=== PATIENT | male | born 1970 | race Hispanic/Latino ===

== ENCOUNTER 2018-12-14 12:11 | Emergency (ER) | payer SELFPAY ==
[2018-12-14 13:37] LABS: Absolute Lymphocytes (CBC) 1.6 K/uL (0.7-4.9); Absolute Monocytes 1.4 K/uL (0.1-1.3); Absolute Neutrophil 10.9 K/uL (1.8-8.0); Basophils % 0.3 % (0-1.3); Eosinophils % 1.1 % (0-4.4); Hematocrit 45.2 % (39.6-49.0); Lymphocytes % 11.6 % (15.3-44.8); MPV 9.6 fL (7.6-11.3); Monocytes % 9.6 % (3.3-12.3); RBC Red Blood Cell Count 5.38 M/uL (4.33-5.43)
--- NOTE | 2018-12-14 13:40 | RAD REPORT ---
EXAM DESCRIPTION: RAD - Chest Single View - 12/14/2018 1:19 pm CLINICAL HISTORY: Cough and congestion, weakness COMPARISON: None. TECHNIQUE: AP portable chest image was obtained 1316 hours . FINDINGS: Lungs are clear. Heart and vasculature are normal. No measurable pleural effusion and no p neumothorax. No acute bony abnormality seen. No acute aortic findings suspected. IMPRESSION: No acute cardiopulmonary process.
[2018-12-14 13:41] LABS: Protime INR 1.07
[2018-12-14 13:53] LABS: CKMB Creatine Kinase MB 1.1 ng/mL (0.3-3.6); Potassium 3.8 mmol/L (3.5-5.1)
[2018-12-14] MEDS ORDERED: CEFTRIAXONE/SWI 1gm 1 GM/10 ML SYR ONE (14:10)
--- NOTE | 2018-12-14 14:24 | RAD REPORT ---
EXAM DESCRIPTION: CT - Soft Tissue Neck W/Contr - 12/14/2018 2:05 pm CLINICAL HISTORY: Trismus, patient details left-sided jaw pain, left-sided toothache TECHNIQUE: During dynamic enhancement using 100 milliliters nonionic IV contrast, axial 5 millimeter thick images of the neck were obtained. All CT scans are performed using dose optimization technique as appropriate and may include automated exposure control or mA/KV adjustment according to patient size. FINDINGS: Intracranial portion of the examination is unremarkable. No globe or orbital content abnor mality. Mastoid air cells are not pneumatized in this patient. The paranasal sinuses are clear. No pharyngeal mucosal mass or asymmetry. Tonsillar and tongue base tissues shows no suspicious findin g. Parapharyngeal fat is normal in appearance. Soft palate, epiglottis and laryngeal structures also unremarkable. Parotid, submandibular and thyroid gland tissue show no suspicious findings. No acute bone finding identifiable. No erosive or destructive changes in the mandible or maxilla. No periodontal mass, abscess or measurable inflammatory stranding. No soft tissue mass or abnormal ly mphadenopathy. IMPRESSION: As detailed above, CT soft tissue neck examination shows no significant or suspicious fi nding.
[2018-12-14 14:26] LABS: Urine Bacteria <20 /HPF (NONE SEEN); Urine Culture Reflex Order NOT NEEDED; Urine RBC <5 /HPF (NONE SEEN)
[2018-12-14 14:32] LABS: Urine Blood NEGATIVE (NEG); Urine Glucose 2+ (NEG); Urine Protein NEGATIVE (NEG); Urine Specific Gravity <1.005 (1.005-1.030); Urine pH 5.5 (5.0-7.0)
[2018-12-14] MEDS ORDERED: TRAMADOL HCL 50 MG TAB ONE (14:59)
[2018-12-14] MEDS ORDERED: LISINOPRIL 10 MG TAB ONE (15:01)
[2018-12-14] MEDS ORDERED: cloNIDine HCl 0.1 MG TAB ONE (15:01)
[2018-12-14 15:02] LABS: ALT/SGPT 21 U/L (12-78); AST/SGOT 11 U/L (15-37); Albumin 3.1 g/dL (3.4-5.0); Alkaline Phosphatase 87 U/L (45-117); Bilirubin Direct 0.2 mg/dL (0-0.2); Bilirubin Total 0.6 mg/dL (0.2-1.0); Lipase 132 U/L (73-393); Protein, Total 8.1 g/dL (6.4-8.2); Troponin (Emerg Dept Use Only) < 0.02 ng/mL (0.0-0.045)
--- NOTE | 2018-12-14 16:23 | ER ---
Nurse's Notes [facility] Name: John Paz Age: 48 yrs Sex: Male : 1970 Arrival Date: 12/14/2018 Time: 12:15 Bed 2 Private MD: Diagnosis: Hypertension: poorly controlled; left lower mandibular pain (no abscess) Presentation: 12/14 12:18 Presenting complaint: Patient states: "I had an MRI of my back about 2 weeks ago and aa5 the doctor in [place] said my back is messed up but I am just so weak and my left jaw hurts". Pt reports generalized weakness, pt also reports toothache to left side, and body aches. Pt reports symptoms began 1-2 weeks ago. Pt states "I also feel like a ball under my testicles and it hurts a little bit". Transition of care: patient was not received from another setting of care. Onset of symptoms was December 2018. Risk Assessment: Do you want to hurt yourself or someone else? Patient reports no desire to harm self or others. Initial Sepsis Screen: Does the patient meet any 2 criteria? No. Patient's initial sepsis screen is negative. Does the patient have a suspected source of infection? No. Patient's initial sepsis screen is negative. Care prior to arrival: None. 12:18 Method Of Arrival: Ambulatory aa5 12:18 Acuity: TIEN 3 aa5 Historical: - Allergies: 12:21 No Known Allergies; aa5 - PMHx: 12:21 Hypertension; Back problems/pain; aa5 - PSHx: 12:21 None; aa5 - Immunization history:: Adult Immunizations unknown. - Social history:: Smoking status: Patient uses tobacco products, 2 cigarettes a day . - Ebola Screening: : No symptoms or risks identified at this time. Screenin:52 Abuse screen: Denies threats or abuse. Denies injuries from another. Nutritional ph screening: No deficits noted. Tuberculosis screening: No symptoms or risk factors identified. Fall Risk None identified. Assessment: 12:45 General: Appears in no apparent distress. uncomfortable, Behavior is calm, cooperative, ph appropriate for age. Pain: Complains of pain in left jaw and back. Neuro: Level of Consciousness is awake, alert, obeys commands, Oriented to person, place, time, situation. Neuro: Reports weakness in " all over" x 2 weeks. Cardiovascular: Capillary refill < 3 seconds in bilateral fingers Patient's skin is warm and dry. Respiratory: Airway is patent Respiratory effort is even, unlabored, Respiratory pattern is regular, symmetrical, Denies cough, shortness of breath. GI: No signs and/or symptoms were reported involving the gastrointestinal system. Patient currently denies abdominal pain, diarrhea, nausea, vomiting. : Reports " a bump " under scrotum that is tender upon palpation. Derm: Skin is intact, is healthy with good turgor, Skin is pink, warm \\T\\ dry. Musculoskeletal: Circulation, motion, and sensation intact. Range of motion: intact in all extremities. 12:53 Reassessment: Patient appears in no apparent distress at this time. Patient and/or ph family updated on plan of care and expected duration. Pain level reassessed. Patient is alert, oriented x 3, equal unlabored respirations, skin warm/dry/pink. Pt ambulated to restroom w/ steady gait, urine sample obtained. 14:00 Reassessment: Patient appears in no apparent distress at this time. Patient and/or ph family updated on plan of care and expected duration. Pain level reassessed. Patient is alert, oriented x 3, equal unlabored respirations, skin warm/dry/pink. Pt resting quietly, awaiting lab and radiology results, SO at bedside. 14:59 Reassessment: Patient appears in no apparent distress at this time. Patient and/or ph family updated on plan of care and expected duration. Pain level reassessed. Patient is alert, oriented x 3, equal unlabored respirations, skin warm/dry/pink. Pt medicated for per per ERP order, ambulated to restroom w/ steady gait. Vital Signs: 12:22 BP 168 / 98; Pulse 100; Resp 16 S; Temp 98.2(TE); Pulse Ox 96% ; Weight 117.93 kg (R); aa5 Height 5 ft. 5 in. (165.10 cm) (R); Pain 10/10; 13:30 BP 175 / 111; Pulse 92; Resp 21; Temp 98.1(O); Pulse Ox 96% on R/A; Pain 10/10; dh3 14:29 BP 178 / 126; Pulse 87; Resp 22; Temp 97.9(O); Pulse Ox 95% on R/A; Pain 10/10; dh3 16:00 BP 144 / 103; Pulse 85; Resp 18; Pulse Ox 96% on R/A; ph 12:22 Body Mass Index 43.27 (117.93 kg, 165.10 cm) aa5 ED Course: 12:15 Patient arrived in ED. aa5 12:18 Arm band placed on. aa5 12:20 Triage completed. aa5 12:27 Sukh Munoz MD is Attending Physician. kdr 12:40 Barbara Barragan, BELKYS is Primary Nurse. ph 13:00 First set of blood cultures drawn by me. Missed attempt(s): 18 gauge in right forearm. dh3 Bleeding controlled, band aid applied, catheter tip intact. 13:16 Initial lab(s) drawn, by nh, sent to lab. Second set of blood cultures drawn by me. 3 Inserted saline lock: 18 gauge in right antecubital area, using aseptic technique. Blood collected. 13:20 Chest Single View XRAY In Process Unspecified. EDMS 14:05 CT completed. Patient tolerated procedure well. Patient moved to CT via wheelchair. Patient moved back from CT. 14:07 CT Soft Tissue Neck W/contr In Process Unspecified. EDMS 14:53 Patient has correct armband on for positive identification. Placed in gown. Bed in low ph position. gambling monitor on. Pulse ox on. NIBP on. Door closed. Noise minimized. Warm blanket given. 15:00 No provider procedures requiring assistance completed. ph 16:25 IV discontinued, intact, bleeding controlled, No redness/swelling at site. Pressure ph dressing applied. Administered Medications: 14:00 Drug: Rocephin - (cefTRIAXone) 1 grams Route: IVPB; Infused Over: 30 mins; Site: right ph antecubital; 14:30 Follow up: Response: No adverse reaction; IV Status: Completed infusion ph 14:51 Drug: cloNIDine 0.2 mg Route: PO; ph 15:30 Follow up: Response: No adverse reaction; Blood pressure is lowered ph 14:51 Drug: Lisinopril 10 mg Route: PO; ph 15:30 Follow up: Response: No adverse reaction; Blood pressure is lowered ph 14:51 Drug: traMADol 100 mg Route: PO; ph 15:30 Follow up: Response: No adverse reaction; Pain is decreased ph Point of Care Testing: Blood Glucose: 13:31 Blood Glucose: 338 mg/dL; dh3 Ranges: Outcome: 16:22 Discharge ordered by . kdr 16:38 Patient left the ED. ph 16:38 Discharged to home ambulatory, with significant other. ph 16:38 Condition: good 16:38 Discharge instructions given to patient, Instructed on discharge instructions, follow up and referral plans. medication usage, Demonstrated understanding of instructions, follow-up care, medications, Prescriptions given X 2. Signatures: Dispatcher [employer] EDMS Sukh Munoz MD MD kdr Jones, Susan sj Calderon, Audri RN RN aa5 Barbara Barragan RN RN Erika Sherwood 3 Corrections: (The following items were deleted from the chart) 12:20 12:18 Presenting complaint: Patient states: "I had an MRI of my back about 2 weeks ago aa5 and the doctor in [place] said my back is messed up but I am just so weak and my left jaw hurts". Pt reports generalized weakness, pt also reports toothache to left side. Pt reports symptoms began 1-2 weeks ago aa5 12:22 12:18 Presenting complaint: Patient states: "I had an MRI of my back about 2 weeks ago aa5 and the doctor in [place] said my back is messed up but I am just so weak and my left jaw hurts". Pt reports generalized weakness, pt also reports toothache to left side, and body aches. Pt reports symptoms began 1-2 weeks ago aa5
--- NOTE | 2018-12-14 16:23 | EDPHYS ---
Physician Documentation [facility] Name: John Paz Age: 48 yrs Sex: Male : 1970 Arrival Date: 12/14/2018 Time: 12:15 Bed 2 Private MD: ED Physician Sukh Munoz HPI: 12/14 15:20 This 48 yrs old Male presents to ER via Ambulatory with complaints of multiple kdr c/o including left jaw aching, trismus, lower extremity tightness and it hurts under my scrotum. 15:20 The patient states that for the past two weeks I have been hurting all over and I have kdr difficulty opening my mouth. He thinks he may have a dental abscess on the left lower mandible.. Onset: The symptoms/episode began/occurred gradually. Severity of symptoms: At their worst the symptoms were moderate in the emergency department the symptoms are unchanged. The patient has not experienced similar symptoms in the past. The patient has been recently seen by a physician: the patient's primary care provider, States he had an MRI of his back and he has chronic back pain . 15:20 He has been in Lisinopril in the past but ran out and did not get a refill.. kdr Historical: - Allergies: 12:21 No Known Allergies; aa5 - PMHx: 12:21 Hypertension; Back problems/pain; aa5 - PSHx: 12:21 None; aa5 - Immunization history:: Adult Immunizations unknown. - Social history:: Smoking status: Patient uses tobacco products, 2 cigarettes a day . - Ebola Screening: : No symptoms or risks identified at this time. ROS: 15:20 Constitutional: Negative for fever, chills, and weight loss, Eyes: Negative for injury, kdr pain, redness, and discharge, ENT: Negative for injury, pain, and discharge - he does c/o mild trismus and neck pain Cardiovascular: Negative for chest pain, palpitations, and edema, Respiratory: Negative for shortness of breath, cough, wheezing, and pleuritic chest pain, Abdomen/GI: Negative for abdominal pain, nausea, vomiting, diarrhea, and constipation, MS/Extremity: Negative for injury and deformity, - he does c/o pain under his scrotum Skin: Negative for injury, rash, and discoloration, Neuro: Negative for headache, weakness, numbness, tingling, and seizure activity. Psych: Negative for depression, anxiety, suicide ideation, homicidal ideation, and hallucinations. 15:20 Neck: Positive for pain at rest, stiffness, Negative for injury or acute deformity. Exam: 17:16 Constitutional: This is a well developed, well nourished patient who is awake, alert, kdr and in no acute distress. Head/Face: Normocephalic, atraumatic. The patient c/oi pain to the left TMJ area. No erythema or abnormal swelling noted Eyes: Pupils equal round and reactive to light, extra-ocular motions intact. Lids and lashes normal. Conjunctiva and sclera are non-icteric and not injected. Cornea within normal limits. Periorbital areas with no swelling, redness, or edema. Neck: Trachea midline, no thyromegaly or masses palpated, and no cervical lymphadenopathy. Supple, full range of motion without nuchal rigidity, or vertebral point tenderness. No Meningismus. Chest/axilla: Normal chest wall appearance and motion. Nontender with no deformity. No lesions are appreciated. Cardiovascular: Regular rate and rhythm with a normal S1 and S2. No gallops, murmurs, or rubs. Normal PMI, no JVD. No pulse deficits. Respiratory: Lungs have equal breath sounds bilaterally, clear to auscultation and percussion. No rales, rhonchi or wheezes noted. No increased work of breathing, no retractions or nasal flaring. Abdomen/GI: Soft, non-tender, with normal bowel sounds. No distension or tympany. No guarding or rebound. No evidence of tenderness throughout. Back: No spinal tenderness. No costovertebral tenderness. Full range of motion. Skin: Warm, dry with normal turgor. Normal color with no rashes, no lesions, and no evidence of cellulitis. MS/ Extremity: Pulses equal, no cyanosis. Neurovascular intact. Full, normal range of motion. Neuro: Awake and alert, GCS 15, oriented to person, place, time, and situation. Cranial nerves II-XII grossly intact. Motor strength 5/5 in all extremities. Sensory grossly intact. Cerebellar exam normal. Normal gait. Psych: Awake, alert, with orientation to person, place and time. Behavior, mood, and affect are within normal limits. Vital Signs: 12:22 BP 168 / 98; Pulse 100; Resp 16 S; Temp 98.2(TE); Pulse Ox 96% ; Weight 117.93 kg (R); aa5 Height 5 ft. 5 in. (165.10 cm) (R); Pain 10/10; 13:30 BP 175 / 111; Pulse 92; Resp 21; Temp 98.1(O); Pulse Ox 96% on R/A; Pain 10/10; dh3 14:29 BP 178 / 126; Pulse 87; Resp 22; Temp 97.9(O); Pulse Ox 95% on R/A; Pain 10/10; dh3 16:00 BP 144 / 103; Pulse 85; Resp 18; Pulse Ox 96% on R/A; ph 12:22 Body Mass Index 43.27 (117.93 kg, 165.10 cm) aa5 MDM: 16:05 Data reviewed: vital signs, nurses notes. Counseling: I had a detailed discussion with kdr the patient and/or guardian regarding: the historical points, exam findings, and any diagnostic results supporting the discharge/admit diagnosis, lab results, radiology results, the need for outpatient follow up. ED course: The patient states he is feeling much better. He does not appear in any acute distress and his BP is much improved. His symptoms have been present for up to two weeks. He was sleeping on my last visit in the room though still maintained that his pain was an 8/10. He had no s/s of meningitis or other acute illness. . 16:22 Patient medically screened. [facility] 12/14 12:44 Order name: Basic Metabolic Panel [facility] 12/14 12:44 Order name: Blood Culture Adult (2) [facility] 12/14 12:44 Order name: CBC with Diff kdr 12/14 12:44 Order name: Ckmb [facility] 12/14 12:44 Order name: CPK [facility] 12/14 12:44 Order name: Lactate; Complete Time: 14:15 [facility] 12/14 12:44 Order name: LFT's [facility] 12/14 12:44 Order name: Lipase [facility] 12/14 12:44 Order name: Procalcitonin; Complete Time: 14:34 [facility] 12/14 12:44 Order name: Protime (+inr); Complete Time: 13:51 [facility] 12/14 12:44 Order name: Ptt, Activated; Complete Time: 13:51 [facility] 12/14 12:44 Order name: Troponin (emerg Dept Use Only) kdr 12/14 12:44 Order name: Urine Microscopic Only; Complete Time: 14:34 kdr 12/14 12:49 Order name: Basic Metabolic Panel; Complete Time: 14:15 EDMS 12/14 12:44 Order name: Chest Single View XRAY; Complete Time: 13:51 kdr 12/14 12:44 Order name: Accucheck; Complete Time: 13:35 kdr 12/14 12:44 Order name: Cardiac monitoring; Complete Time: 13:35 kdr 12/14 12:44 Order name: IV Saline Lock - Large Bore; Complete Time: 13:24 kdr 12/14 12:44 Order name: Labs collected and sent; Complete Time: 13:24 kdr 12/14 12:44 Order name: CT Soft Tissue Neck W/contr; Complete Time: 14:34 kdr 12/14 12:49 Order name: Blood Culture EDMS 12/14 12:49 Order name: CBC with Automated Diff; Complete Time: 13:51 EDMS 12/14 12:50 Order name: CKMB Creatine Kinase MB; Complete Time: 14:15 EDMS 12/14 12:50 Order name: Creatine Phosphokinase; Complete Time: 14:15 EDMS 14 13:37 Order name: Glucose, Ancillary Testing; Complete Time: 13:51 EDMS 12/14 13:46 Order name: Urine Dipstick--Ancillary (enter results); Complete Time: 14:34 ms 14 12:44 Order name: O2 Per Protocol; Complete Time: 13:35 kdr 12/14 12:44 Order name: O2 Sat Monitoring; Complete Time: 13:35 kdr 12/14 12:44 Order name: Urine Dipstick-Ancillary (obtain specimen); Complete Time: 13:35 kdr Administered Medications: 14:00 Drug: Rocephin - (cefTRIAXone) 1 grams Route: IVPB; Infused Over: 30 mins; Site: right ph antecubital; 14:30 Follow up: Response: No adverse reaction; IV Status: Completed infusion ph 14:51 Drug: cloNIDine 0.2 mg Route: PO; ph 15:30 Follow up: Response: No adverse reaction; Blood pressure is lowered ph 14:51 Drug: Lisinopril 10 mg Route: PO; ph 15:30 Follow up: Response: No adverse reaction; Blood pressure is lowered ph 14:51 Drug: traMADol 100 mg Route: PO; ph 15:30 Follow up: Response: No adverse reaction; Pain is decreased ph Point of Care Testing: Blood Glucose: 13:31 Blood Glucose: 338 mg/dL; dh3 Ranges: Critical Glucose Levels:Adult <50 mg/dl or >400 mg/dl <40 mg/dl or >180 mg/dl Disposition: 12/14/18 16:22 Discharged to Home. Impression: Hypertension: poorly controlled; left lower mandibular pain (no abscess). - Condition is Stable. - Discharge Instructions: Hypertension, [id number]. - Prescriptions for Lisinopril 20 mg Oral Tablet - take 1 tablet by ORAL route once daily; 20 tablet. Tramadol 50 mg Oral Tablet - take 1 tablet by ORAL route every 8 hours as needed; 12 tablet. - Medication Reconciliation Form, Thank You Letter form. - Follow up: Private Physician; When: 2 - 3 days; Reason: If symptoms return, Further diagnostic work-up, Recheck today's complaints, Continuance of care, Re-evaluation by your physician. - Problem is an acute exacerbation. - Symptoms have improved. Signatures: Dispatcher [employer] EDMS Sukh Munoz MD MD [facility] Adry Lozano RN RN aa5 Barbara Barragan RN RN ph Corrections: (The following items were deleted from the chart) 16:38 16:22 12/14/2018 16:22 Discharged to Home. Impression: Hypertension: poorly controlled; ph left lower mandibular pain (no abscess). Condition is Stable. Forms are Medication Reconciliation Form, Thank You Letter, Antibiotic Education, Prescription Opioid Use. Follow up: Private Physician; When: 2 - 3 days; Reason: If symptoms return, Further diagnostic work-up, Recheck today's complaints, Continuance of care, Re-evaluation by your physician. Problem is an acute exacerbation. Symptoms have improved. kdr
== END 2018-12-14 16:38 | disposition home or self-care (01) ==
LOC: ER 12:11
DX: I10 Essential (primary) hypertension (principal); R68.84 Jaw pain; F17.210 Nicotine dependence, cigarettes, uncomplicated
CPT/HCPCS: 36415; 70491; 71045; 80048; 80076; 81003; 81015; 82550; 82553; 82962; 83605; 83690; 84145; 84484; 85025; 85610; 85730; 87040; 96365; 99285; J0696; Q9967

== ENCOUNTER 2021-02-22 23:33 | Emergency (ER) | payer SELFPAY ==
--- OUTSIDE RECORDS SUMMARY | 2021-02-22 23:35 | XMS REPORT | Continuity of Care Document ---
:1970 Author Organization [facility] t Address [address] [place] [address] [address]. [address] [place] [address] Care Team Providers Name Role Phone Unavailable Unavailable Unavailable Problems This patient has no known problems. Allergies, Adverse Reactions, Alerts This patient has no known allergies or adverse reactions. Medications This patient has no known medications. Procedures This patient has no known procedures. Results This patient has no known results.
[2021-02-23 01:26] LABS: Protime INR 1.04
[2021-02-23] MEDS ORDERED: cloNIDine HCL 0.1 MG TAB ONE (01:33)
[2021-02-23] MEDS ORDERED: HYDRALAZINE HCL 20 MG/ML VIAL ONE (01:33)
[2021-02-23 01:54] LABS: ALT/SGPT 49 U/L (12-78); AST/SGOT 39 U/L (15-37); Albumin 3.6 g/dL (3.4-5.0); Alkaline Phosphatase 62 U/L (45-117); BUN Blood Urea Nitrogen 12 mg/dL (7-18); Bicarbonate 24 mmol/L (21-32); Bilirubin Direct 0.1 mg/dL (0-0.2); Bilirubin Total 0.6 mg/dL (0.2-1.0); Glucose Level 129 mg/dL (74-106); NT PRO-BNP 160 pg/mL (<125); Potassium 3.7 mmol/L (3.5-5.1); Protein, Total 7.2 g/dL (6.4-8.2); Sodium Level 143 mmol/L (136-145); Troponin (Emerg Dept Use Only) < 0.02 ng/mL (0.0-0.045)
[2021-02-23 02:06] LABS: Absolute Lymphocytes (CBC) 2.5 K/uL (0.7-4.9); Basophils % 0.5 % (0-1.3); Hematocrit 44.2 % (39.6-49.0); Lymphocytes % 25.2 % (15.3-44.8); MPV 9.5 fL (7.6-11.3); RBC Red Blood Cell Count 5.32 M/uL (4.33-5.43)
--- NOTE | 2021-02-23 02:49 | ER ---
Nurse's Notes [facility] Name: John Paz Age: 51 yrs Sex: Male : 1970 Arrival Date: 02/22/2021 Time: 23:36 Bed 3 Private MD: Diagnosis: Essential (primary) hypertension Presentation: 02/22 23:46 Chief complaint: EMS states: Pt is complaining of HTN, has a history of HTN and as jb4 locked up for 5 days in alf without the ability to take his medication. Is now reporting headache, dizziness, and nausea. His b/p read 206/130. Coronavirus screen: Client denies travel out of the [place] in the last 14 days. Ebola Screen: No symptoms or risks identified at this time. Initial Sepsis Screen: Does the patient meet any 2 criteria? No. Patient's initial sepsis screen is negative. Does the patient have a suspected source of infection? No. Patient's initial sepsis screen is negative. Risk Assessment: Do you want to hurt yourself or someone else? Patient reports no desire to harm self or others. Onset of symptoms was February 22, 2021. Transition of care: patient was not received from another setting of care. 23:46 Method Of Arrival: EMS: [facility] jb4 23:46 Acuity: TIEN 3 jb4 Historical: - Allergies: 23:48 No Known Allergies; jb4 - Home Meds: 23:48 Lisinopril Oral [Active]; jb4 - PMHx: 23:48 Back problems/pain; Hypertension; jb4 - PSHx: 23:48 None; jb4 - Immunization history:: Adult Immunizations up to date. - Social history:: Smoking status: Patient reports the use of cigarette tobacco products, smokes one-half pack cigarettes per day, Patient uses alcohol, only on a social basis. street drugs, marijuana. Screenin:50 Abuse screen: Denies threats or abuse. Nutritional screening: No deficits noted. jb4 Tuberculosis screening: No symptoms or risk factors identified. Fall Risk None identified. Assessment: 23:50 General: Appears in no apparent distress. comfortable, Behavior is calm, cooperative, jb4 appropriate for age. Pain: Complains of pain in headache Pain does not radiate. Pain currently is 7 out of 10 on a pain scale. Neuro: Level of Consciousness is awake, alert, obeys commands, Oriented to person, place, time, situation. Cardiovascular: Patient's skin is warm and dry. Respiratory: Airway is patent Respiratory effort is even, unlabored, Respiratory pattern is regular, symmetrical. GI: No signs and/or symptoms were reported involving the gastrointestinal system. : No signs and/or symptoms were reported regarding the genitourinary system. EENT: No signs and/or symptoms were reported regarding the EENT system. Derm: Skin is intact, Skin is pink, warm \T\ dry. normal. Musculoskeletal: No signs and/or symptoms reported regarding the musculoskeletal system. 02/23 01:00 Reassessment: Patient appears in no apparent distress at this time. Patient and/or jb4 family updated on plan of care and expected duration. Pain level reassessed. Patient is alert, oriented x 3, equal unlabored respirations, skin warm/dry/pink. 02:13 Reassessment: Patient appears in no apparent distress at this time. Patient and/or jb4 family updated on plan of care and expected duration. Pain level reassessed. Patient is alert, oriented x 3, equal unlabored respirations, skin warm/dry/pink. 03:29 Reassessment: Patient appears in no apparent distress at this time. Patient and/or jb4 family updated on plan of care and expected duration. Pain level reassessed. Patient is alert, oriented x 3, equal unlabored respirations, skin warm/dry/pink. Vital Signs: 02/22 23:46 BP 198 / 125; Pulse 70; Resp 16; Pulse Ox 100% on R/A; Weight 107.95 kg (R); Height 5 4 ft. 5 in. (165.10 cm); Pain 7/10; 02/23 01:00 BP 192 / 123; Pulse 78; Resp 22; Pulse Ox 100% on R/A; jb4 02:00 BP 152 / 100; Pulse 70; Resp 13; Pulse Ox 100% on R/A; jb4 03:20 BP 110 / 87; Pulse 78; Resp 16; Pulse Ox 98% on R/A; jb4 02/22 23:46 Body Mass Index 39.60 (107.95 kg, 165.10 cm) [facility] ED Course: 02/22 23:36 Patient arrived in ED. mw2 23:43 Milan Dos Santos MD is Attending Physician. tw4 23:46 Terry Arellano RN is Primary Nurse. jb4 23:48 Triage completed. jb4 23:48 Arm band placed on right wrist. jb4 23:50 Patient has correct armband on for positive identification. Bed in low position. Call jb4 light in reach. Side rails up X 1. social services assistant on. Pulse ox on. NIBP on. 02/23 00:46 XRAY Chest (1 view) In Process Unspecified. EDMS 01:07 Inserted saline lock: 22 gauge in right antecubital area, using aseptic technique. ds4 Blood collected. Missed attempt(s): 20 gauge in right wrist. Bleeding controlled, band aid applied, catheter tip intact. 03:20 No provider procedures requiring assistance completed. IV discontinued, intact, jb4 bleeding controlled, No redness/swelling at site. Pressure dressing applied. Administered Medications: 01:22 Drug: hydrALAZINE 20 mg Route: IVP; Site: right antecubital; 4 03:00 Follow up: Response: No adverse reaction; Blood pressure is lowered [facility] 01:22 Drug: cloNIDine 0.2 mg Route: PO; jb4 03:00 Follow up: Response: No adverse reaction; Blood pressure is lowered [facility] Outcome: 02:49 Discharge ordered by . tw4 03:20 Discharged to home ambulatory. jb4 03:20 Condition: stable 03:20 Discharge instructions given to patient, Instructed on discharge instructions, follow up and referral plans. medication usage, Demonstrated understanding of instructions, follow-up care, medications, Prescriptions given X 1. 03:30 Patient left the ED. 4 Signatures: Dispatcher [employer] [facility] Ricco Orozco 4 Terry Arellano RN RN jb4 Milan Dos Santos MD MD tw4 Lisa Ortega mw2 Corrections: (The following items were deleted from the chart) 02/22 23:50 23:48 Allergies: Aspirin; jb4 jb4
--- NOTE | 2021-02-23 02:49 | EDPHYS ---
Physician Documentation [facility] Name: John Paz Age: 51 yrs Sex: Male : 1970 Arrival Date: 02/22/2021 Time: 23:36 Bed 3 Private MD: ED Physician Milan Dos Santos HPI: 02/23 06:52 This 51 yrs old Male presents to ER via EMS with complaints of Is a tw4 51-year-old male comes in complaining of high blood pressure after being noncompliant with his medication. 06:52 The patient has elevated blood pressure and discovered this at home. Onset: The tw4 symptoms/episode began/occurred today. Modifying factors: The symptoms are aggravated by. Associated signs and symptoms: Pertinent positives: dizziness, lightheadedness, Pertinent negatives: chest pain, headache, nausea, visual changes. The patient has not experienced similar symptoms in the past. Historical: - Allergies: 02/22 23:48 No Known Allergies; jb4 - Home Meds: 23:48 Lisinopril Oral [Active]; jb4 - PMHx: 23:48 Back problems/pain; Hypertension; jb4 - PSHx: 23:48 None; jb4 - Immunization history:: Adult Immunizations up to date. - Social history:: Smoking status: Patient reports the use of cigarette tobacco products, smokes one-half pack cigarettes per day, Patient uses alcohol, only on a social basis. street drugs, marijuana. ROS: 02/23 06:52 Constitutional: Negative for fever, chills, and weight loss, Eyes: Negative for injury, tw4 pain, redness, and discharge, Cardiovascular: Negative for chest pain, palpitations, and edema, Respiratory: Negative for shortness of breath, cough, wheezing, and pleuritic chest pain, Abdomen/GI: Negative for abdominal pain, nausea, vomiting, diarrhea, and constipation, Back: Negative for injury and pain, MS/Extremity: Negative for injury and deformity, Skin: Negative for injury, rash, and discoloration, Neuro: Negative for headache, weakness, numbness, tingling, and seizure. Exam: 06:52 Constitutional: This is a well developed, well nourished patient who is awake, alert, tw4 and in no acute distress. Head/Face: Normocephalic, atraumatic. Chest/axilla: Normal chest wall appearance and motion. Nontender with no deformity. No lesions are appreciated. Cardiovascular: Regular rate and rhythm with a normal S1 and S2. No gallops, murmurs, or rubs. Normal PMI, no JVD. No pulse deficits. Respiratory: Lungs have equal breath sounds bilaterally, clear to auscultation and percussion. No rales, rhonchi or wheezes noted. No increased work of breathing, no retractions or nasal flaring. Abdomen/GI: Soft, non-tender, with normal bowel sounds. No distension or tympany. No guarding or rebound. No evidence of tenderness throughout. Back: No spinal tenderness. No costovertebral tenderness. Full range of motion. MS/ Extremity: Pulses equal, no cyanosis. Neurovascular intact. Full, normal range of motion. Neuro: Awake and alert, GCS 15, oriented to person, place, time, and situation. Cranial nerves II-XII grossly intact. Motor strength 5/5 in all extremities. Sensory grossly intact. Cerebellar exam normal. Normal gait. Vital Signs: 02/22 23:46 BP 198 / 125; Pulse 70; Resp 16; Pulse Ox 100% on R/A; Weight 107.95 kg (R); Height 5 jb4 ft. 5 in. (165.10 cm); Pain 7/10; 02/23 01:00 BP 192 / 123; Pulse 78; Resp 22; Pulse Ox 100% on R/A; jb4 02:00 BP 152 / 100; Pulse 70; Resp 13; Pulse Ox 100% on R/A; jb4 03:20 BP 110 / 87; Pulse 78; Resp 16; Pulse Ox 98% on R/A; jb4 02/22 23:46 Body Mass Index 39.60 (107.95 kg, 165.10 cm) jb4 MDM: 02/22 23:43 Patient medically screened. tw4 02/23 06:54 Differential diagnosis: hypertensive crisis, Malignant HTN. Data reviewed: vital signs, tw4 nurses notes. Data interpreted: Pulse oximetry: Interpretation: normal. Counseling: I had a detailed discussion with the patient and/or guardian regarding: the historical points, exam findings, and any diagnostic results supporting the discharge/admit diagnosis. Medication response: hydralazine. Special discussion: I discussed with the patient/guardian in detail that at this point there is no indication for admission to the hospital. It is understood, however, that if the symptoms persist or worsen the patient needs to return immediately for re-evaluation. 02/23 00:15 Order name: Basic Metabolic Panel; Complete Time: 02:02/23 02:31 Interpretation: Normal except: GLUC 129. 02/23 00:15 Order name: CBC with Diff; Complete Time: 02:02/23 02:32 Interpretation: Within normal limits. 02/23 00:15 Order name: LFT's; Complete Time: 02:02/23 02:32 Interpretation: Normal except: AST 39; GLOB 3.6; A/G 1.0. 02/23 00:15 Order name: Magnesium; Complete Time: 02:02/23 02:32 Interpretation: Within normal limits: MG 2.0. 02/23 00:15 Order name: NT PRO-BNP; Complete Time: 02:02/23 02:32 Interpretation: Normal except: NT PRO-BNP 160. 02/23 00:15 Order name: PT-INR; Complete Time: 02:02/23 02:32 Interpretation: Within normal limits: PT 12.0; INR <p>1.04</p>. 02/23 00:15 Order name: Troponin (emerg Dept Use Only); Complete Time: 02:02/23 02:32 Interpretation: Within normal limits: TROPED < 0.02. 02/23 00:15 Order name: XRAY Chest (1 view) 02/23 00:15 Order name: EKG; Complete Time: 00:16 02/23 00:15 Order name: Cardiac monitoring; Complete Time: 01:02/23 00:15 Order name: EKG - Nurse/Tech; Complete Time: :02/23 00:15 Order name: IV Saline Lock; Complete Time: :02/23 00:15 Order name: Labs collected and sent; Complete Time: 01:02/23 00:15 Order name: O2 Per Protocol; Complete Time: :02/23 00:15 Order name: O2 Sat Monitoring; Complete Time: 01:03 tw4 EC:52 Rate is 72 beats/min. Rhythm is regular. QRS [place] is Normal. VA interval is normal. QRS tw4 interval is normal. QT interval is normal. No Q waves. T waves are Inverted in leads III, V6. No ST changes noted. Clinical impression: NSR w/ Non-specific ST/T Changes. Interpreted by me. Reviewed by me. Administered Medications: : Drug: hydrALAZINE 20 mg Route: IVP; Site: right antecubital; jb4 03:00 Follow up: Response: No adverse reaction; Blood pressure is lowered jb4 01:22 Drug: cloNIDine 0.2 mg Route: PO; jb4 03:00 Follow up: Response: No adverse reaction; Blood pressure is lowered jb4 Disposition Summary: 02/23/21 02:49 Discharge Ordered Location: Home tw4 Problem: new tw4 Symptoms: have improved tw4 Condition: Stable tw4 Diagnosis - Essential (primary) hypertension tw4 Followup: tw4 - With: Private Physician - When: Upon discharge from the Emergency Department - Reason: Recheck today's complaints, Continuance of care, Re-evaluation by your physician Discharge Instructions: - Discharge Summary Sheet tw4 - Hypertension, Adult tw4 - Hypertension, Adult, [id number] tw4 Forms: - Medication Reconciliation Form tw4 - Thank You Letter tw4 - Antibiotic Education tw4 - Prescription Opioid Use tw4 Prescriptions: - Norvasc 10 mg Oral Tablet - take 1 tablet by ORAL route once daily; 30 tablet; Refills: 0, Product tw4 Selection Permitted Signatures: Dispatcher [employer] Terry Sheppard RN RN jb4 Milan Dos Santos MD MD tw4 Corrections: (The following items were deleted from the chart) 02/22 23:50 23:48 Allergies: Aspirin; jb4 jb4 02/23 01:48 01:43 Manual Differential ordered. EDMS EDMS
[2021-02-23 03:41] VITALS: BP 110/87; O2SAT 98
--- NOTE | 2021-02-23 07:37 | EKG ---
Test Date: 2021-02-23 Test Time: 00:56:48 Glove Pairer: YUKO MEASUREMENT RESULTS: Intervals: Rate: 72 IN: 134 QRSD: 100 QT: 432 QTc: 473 [place]: P: 50 IN: 134 QRS: 56 T: 17 INTERPRETIVE STATEMENTS: Normal sinus rhythm Nonspecific T wave abnormality Prolonged QT Abnormal ECG Compared to ECG 06/29/2015 13:58:42 T-wave abnormality now present Prolonged QT interval now present Electronically Signed On 02-23-21 07:36:12 CDT by Agustin Norman
--- NOTE | 2021-02-23 08:48 | RAD REPORT ---
EXAM DESCRIPTION: Bambi Single View02/23/2021 12:46 am CLINICAL HISTORY: Hypertension COMPARISON: 2018 FINDINGS: The lungs appear clear of acute infiltrate. The heart is mildly enlarged IMPRESSION: No acute abnormalities displayed
== END 2021-02-23 03:30 | disposition home or self-care (01) ==
LOC: ER 23:33
DX: I10 Essential (primary) hypertension (principal); F17.210 Nicotine dependence, cigarettes, uncomplicated
CPT/HCPCS: 36415; 71045; 80048; 80076; 83735; 83880; 84484; 85025; 85610; 93005; 96374; 99285; J0360

== ENCOUNTER 2021-11-13 05:53 | Emergency (ER) | payer SELFPAY ==
--- OUTSIDE RECORDS SUMMARY | 2021-11-13 05:56 | XMS REPORT | Continuity of Care Document ---
:1970 Author Organization [facility] t Address [address] [place] [address] [address]. [address] [place] [address] Care Team Providers Name Role Phone PCP, DOES NOT HAVE A Primary Care Physician Unavailable PRABHA Attending Clinician Unavailable Prabha PALEOLOGIST Attending Clinician Doctor Unassigned, Name Attending Clinician Unavailable Orlando Briones MD Attending Clinician Orlando BRIONES Attending Clinician Unavailable Payers Payer Name Policy Type Policy Number Effective Date Expiration Date [facility] MEDICAID SSI PENDING 2021 PENDING 00:00:00 Problems Condition Condition Condition Status Onset Resolution Last Treating Co mments Source Name Details Category Date Date Treatment Clinician Date No known No known Disease Unive rs active active ity of problems problems [facility] Allergies, Adverse Reactions, Alerts Allergy Allergy Status Severity Reaction(s) Onset Inactive Treating Comm ents Source Name Type Date Date Clinician NO KNOWN Drug Active Univers ALLERGIE Class ity of S [facility] Social History Social Habit Start Date Stop Date Quantity Comments Source Exposure to Not sure [facility] SARS-CoV-2 (event) Medica l Branch Sex Ass[birth year] [facility] 00:00:00 00:00:00 Medical Branch Smoking Status Start Date Stop Date Source Unknown if ever smoked [facility] Medical Branch Medications Ordered Filled Start Stop Current Ordering Indication Dosage Frequency Signature Comments Components Source Medication Medication Date Date Medication? Clinician (SIG) Name Name HYDROcodone 2021- No 1{tbl} 1 tablet, Univers -acetaminop 07-28 Oral, ity of hen (NORCO 04:00: 02:57 ONCE, 1 Frankie as 5) 5-325 mg 00 :00 dose, On Medi shiloh tablet 1 Tue Branch tablet 07/27/21 at 2200, MINDI lisinopriL 2021- No 20mg 20 mg, Univ ers (PRINIVIL,Z 07-28 Oral, ONCE i ty of ESTRIL) 02:45: 01:54 NOW, 1 [place] tablet 20 00 :00 dose, On Medica l mg e Branch 07/27/21 at 204, MINDI lidocaine 2021- No 5mL 5 mL, Univer s 1% 07-28 Infiltrati ity of (XYLOCAINE) 02:45: 02:45 on, ONCE, [place] 10 mg/mL (1 00 :00 1 dose, On Me dical %) Tue Branch injection 5 07/27/21 at mL 2044, MINDI lisinopriL Yes [id number] 20mg Take 2 Univers 10 mg 1-25 tablets by ity of tablet 00:00: mouth at [place] 00 bedtime. Medical Branch butalbital- 2020- No 1{tbl} 1 tablet, Univers acetaminoph 04-01 Oral, ity of en-caff 11:15: 10:08 ONCE, 1 [place] (ESGIC) 00 :00 dose, On Medical 50-325-40 Kellee Branch mg tablet 1 04/01/21 at tablet 0615, Routine amoxicillin Yes [id number] 500mg Take 1 Univers 500 mg 6-09 capsule by ity of capsule 00:00: mouth 3 [place] 00 (three) Medical times Branch daily. ibuprofen Yes [id number] 800mg Take 1 U nivers 800 mg 6-09 tablet by ity of tablet 00:00: mouth [place] 00 every 8 Medical (eight) Branch hours. traMADOL 50 2019-0 Yes [id number] 50mg Take 1 Univers mg tablet 6-09 tablet by ity o f 00:00: mouth [place] 00 every 6 Medical (six) Branch hours as needed for Pain (scale 4-6). hydroCHLORO 2019-0 Yes [id number] 25mg Take 1 Univers thiazide 25 6-09 tablet by ity of mg tablet 00:00: mouth [place] 00 every Medical morning. Branch amoxicillin 2019-0 Yes [id number] 500mg Take 1 Univers 500 mg 6-09 capsule by ity of capsule 00:00: mouth 3 [place] 00 (three) Medical times Branch daily. ibuprofen 2019-0 Yes [id number] 800mg Take 1 U nivers 800 mg 6-09 tablet by ity of tablet 00:00: mouth [place] 00 every 8 Medical (eight) Branch hours. traMADOL 50 2019-0 Yes [id number] 50mg Take 1 Univers mg tablet 6-09 tablet by ity o f 00:00: mouth [place] 00 every 6 Medical (six) Branch hours as needed for Pain (scale 4-6). hydroCHLORO 2019-0 Yes [id number] 25mg Take 1 Univers thiazide 25 6-09 tablet by ity of mg tablet 00:00: mouth [place] 00 every Medical morning. Branch amoxicillin 2019-0 Yes [id number] 500mg Take 1 Univers 500 mg 6-09 capsule by ity of capsule 00:00: mouth 3 [place] 00 (three) Medical times Branch daily. ibuprofen 2019-0 Yes [id number] 800mg Take 1 U nivers 800 mg 6-09 tablet by ity of tablet 00:00: mouth [place] 00 every 8 Medical (eight) Branch hours. traMADOL 50 2019-0 Yes [id number] 50mg Take 1 Univers mg tablet 6-09 tablet by ity o f 00:00: mouth [place] 00 every 6 Medical (six) Branch hours as needed for Pain (scale 4-6). hydroCHLORO 2019-0 Yes [id number] 25mg Take 1 Univers thiazide 25 6-09 tablet by ity of mg tablet 00:00: mouth [place] 00 every Medical morning. Branch Immunizations Ordered Filled Immunization Date Status Comments [facility] e Immunization Name Name Td 2021-07-27 [facility]00 [facility] Vital Signs Vital Name Observation Time Observation Value Comments Source Systolic blood 2021-07-28 03:02:00 181 mm[Hg] Univer sity of pressure [place] [facility] [place] Diastolic blood 2021-07-28 03:02:00 126 mm[Hg] Unive rsity of pressure [place] [facility] Heart rate 2021-07-28 03:02:00 86 /min Universi ty of [place] [facility] [place] Respiratory rate 2021-07-28 03:02:00 18 /min Univ ersity of [place] [facility] [place] Oxygen saturation in 2021-07-28 03:02:00 98 /min University of Arterial blood by [facility] Pulse oximetry Branch Body temperature 2021-07-28 01:42:00 36.11 Halima Univ ersity of [place] [facility] [place] Body height 2021-07-28 01:42:00 165.1 cm Universi ty [facility] [place] [facility] [place] Body weight 2021-07-28 01:42:00 113.399 kg [facility]i ty [facility] [place] [facility] [place] BMI 2021-07-28 01:42:00 41.60 kg/m2 Universi ty of [facility] Systolic blood 2021-04-01 10:49:00 161 mm[Hg] Univer sity of pressure [place] [facility] [place] Diastolic blood 2021-04-01 10:49:00 100 mm[Hg] Unive rsity of pressure [place] [facility] [place] Heart rate 2021-04-01 10:49:00 62 /min Universi ty of [place] [facility] [place] Oxygen saturation in 2021-04-01 10:49:00 96 /min University of Arterial blood by [facility] Pulse oximetry Branch Respiratory rate 2021-04-01 10:00:00 19 /min Univ ersity of [facility] Body temperature 2021-04-01 09:34:00 37 Halima Univ ersity [facility] [place] [facility] [place] Body height 2021-04-01 09:34:00 165.1 cm Universi ty [facility] [place] [facility] [place] Body weight 2021-04-01 09:34:00 106.595 kg [facility]i [facility] [place] [facility] [place] BMI 2021-04-01 09:34:00 39.11 kg/m2 [facility] [place] [facility] [place] Procedures Procedure Date / Time Performed Performing Clinician [facility] e CONSENT/REFUSAL FOR 2021-07-28 01:30:53 Doctor Unassigned, No Un [facility] DIAGNOSIS AND Name Medical Branch TREATMENT EKG-12 LEAD 2021-04-01 10:33:13 Abdiaziz Briones [facility] TROPONIN I 2021-04-01 09:51:00 Abdiaziz Briones [facility] COMP. METABOLIC PANEL 2021-04-01 09:51:00 Abdiaziz Briones [facility] ([id number]) [facility] CBC WITH DIFF 2021-04-01 09:51:00 Abdiaziz Briones [facility] Encounters Start End Encounter Admission Attending Care Care Encounter Source Date/Time Date/Time Type Type Clinicians Facility Department ID 2021-07-27 2021-07-27 Emergency X [facility] ERT [id number] Univers 19:34:00 21:30:00 [facility] 2021-07-27 2021-07-27 [facility] [id number] Univers 19:34:00 21:30:00 Lee Ann MARQUEZ [id number] i ty of [place] [id number] [facility] [id number] [address] 2021-07-27 2021-07-27 Orders Doctor ALEJANDRINA [id number] Univers 00:00:00 00:00:00 Only Unassigned, ADAIR [id number] ity of [place] [facility] [id number] Frankie [id number] [place] [address] Branch 2021-04-01 2021-04-01 Emergency [facility] [id number] Univers 04:30:00 05:49:00 Abdiaziz Marquez [id number] ity of [place] [id number] [facility] [id number] [address] 2021-04-01 2021-04-01 Emergency X [facility] ERT [id number] Univers 04:30:00 04:30:[address] [facility] Results Test Description Test Time Test Comments Results Result Comments Source TROPONIN I 2021-04-01 10:27:12 Test Item Value Reference Range Interpretation Comme nts TROPONIN I (test code = 0.038 ng/mL See_Comment H [Au tomated message] The [id number]) system which ge nerated this result tra nsmitted reference range : <=0.034. The reference r jeremi was not used to int erpret this result as normal/abnormal . KOBE (test code = KOBE) Reference (Normal) Range (defined by the 99th percentile reference limit): <= 0.034 ng/mL Note: Cardiac troponin begins to rise 3-4 hours after the onset of ischemia. Repeat in 4-6 hours if the sample was drawn within 3-4 hours of the onset of the symptom and found normal. Diagnosis of myocardial injury is made with acute changes in cTn concentrations with at least one serial sample above the 99th percentile upper reference limit (URL), taken together with the patient's clinical presentation. Biotin has been reported to cause a negative bias, interpret results relative to patient's use of biotin. Lab Interpretation Abnormal (test code = 51878-7) [facility]. METABOLIC PANEL ([id number])2021-04-01 10:16:56 Test Item Value Reference Range Interpretation Comments NA (test code = 141 mmol/L 135-145 7019181631) K (test code = 4.1 mmol/L 3.5-5.0 0904796389) CL (test code = 104 mmol/L 98-108 8784416114) CO2 TOTAL (test code 29 mmol/L 23-31 = 7652170154) AGAP (test code = 2-16 3421790627) BUN (test code = 17 mg/dL 7-23 5685885927) GLUCOSE (test code = 102 mg/dL 70-110 1839979924) CREATININE (test code 0.89 mg/dL 0.60-1.25 = 8428680886) TOTAL BILI (test code 0.8 mg/dL 0.1-1.1 = 7219247762) CALCIUM (test code = 9.5 mg/dL 8.6-10.6 6684977916) T PROTEIN (test code 7.5 g/dL 6.3-8.2 = 5594649140) ALBUMIN (test code = 4.3 g/dL 3.5-5.0 0076629530) ALK PHOS (test code = 43 U/L 34-122 2319407576) ALTv (test code = 24 U/L 5-50 1742-6) AST(SGOT) (test code 30 U/L 13-40 = 8502359089) eGFR (test code = mL/min/1.73m2 9408193587) KOBE (test code = KOBE) Association of Glomerular Filtration Rate (GFR) and Staging of Kidney Disease* + + +- +| GFR (mL/min/1.73 m2) ?| With Kidney Damage ?| ?Without Kidney Damage+ ------+ ----+ ------+| ?>90 ?| ?Stage one ?| ? Normal ?+ -+ + -+| ?60-89 ?| ?Stage two ?| ? Decreased GFR ? + + +- +| ?30-59 ?| ?Stage three ?| ? Stage three ? + + +- +| ?15-29 ?| ?Stage four ? | ? Stage four ?+ -+ + -+| ?<15 (or dialysis) ? ?| ?Stage five ? | ? Stage five ?+ -+ + -+ *Each stage assumes the associated GFR level has been in effect for at least three months. ?Stages 1 to 5, with or without kidney disease, indicate chronic kidney disease. Notes: Determination of stages one and two (with eGFR >59mL/min/1.73 m2) requires estimation of kidney damage for at least three months as defined by structural or functional abnormalities of the kidney, manifested by either:Pathological abnormalities or Markers of kidney damage (including abnormalities in the composition of the blood or urine or abnormalities in imaging tests). [facility] WITH [id number] 10:04:34 Test Item Value Reference Range Interpretation Comments WBC (test code = See_Comment [Automated 5753-2) message] The sy stem which generated this result transmitted reference range : 4.20 - 10.70 10*3/?L. The reference range was not used to interpret this result as normal/abnormal . RBC (test code = See_Comment [Automated 646-8) message] The sy stem which generated this result transmitted reference range : 4.26 - 5.52 10*6/?L. The reference range was not used to interpret this result as normal/abnormal . HGB (test code = 14.8 g/dL 12.2-16.4 718-7) HCT (test code = 42.6 % 38.4-49.3 4544-3) MCV (test code = 80.8 fL 81.7-95.6 L 787-2) MCH (test code = 28.1 pg 26.1-32.7 785-6) MCHC (test code = 34.7 g/dL 31.2-35.0 786-4) RDW-SD (test code = 33.6 fL 38.5-51.6 L 57549-8) RDW-CV (test code = 11.6 % 12.1-15.4 L 788-0) PLT (test code = See_Comment [Automated 777-3) message] The sy stem which generated this result transmitted reference range : 150 - 328 10*3/ ?L. The reference r jeremi was not used to interpret this result as normal/abnormal . MPV (test code = 11.4 fL 9.8-13.0 68990-0) NRBC/100 WBC (test See_Comment [Automat ed code = 5274892295) message] The system which generated this result transmitted reference range : 0.0 - 10.0 /100 WBCs. The refer ence range was not u sed to interpret th is result as normal/abnormal . NRBC x10^3 (test code <0.01 See_Comment [Auto mated = [id number]) message] The s ystem which generated this result transmitted reference range : 10*3/?L. The reference range was not used to interpret this result as normal/abnormal . GRAN MAT (NEUT) % 59.0 % (test code = 770-8) IMM GRAN % (test code 0.70 % = 3163029708) LYMPH % (test code = 30.3 % 736-9) MONO % (test code = 7.3 % 5905-5) EOS % (test code = 2.3 % 713-8) BASO % (test code = 0.4 % 706-2) GRAN MAT x10^3(ANC) 4.37 10*3/uL 1.99-6.95 (test code = 3441598166) IMM GRAN x10^3 (test 0.05 10*3/uL 0.00-0.06 code = 3340745207) LYMPH x10^3 (test code 2.24 10*3/uL 1.09-3.23 = 731-0) MONO x10^3 (test code 0.54 10*3/uL 0.36-1.02 = 742-7) EOS x10^3 (test code = 0.17 10*3/uL 0.06-0.53 711-2) BASO x10^3 (test code 0.03 10*3/uL 0.01-0.09 = 704-7) Lab Interpretation Abnormal (test code = 65291-7) [facility]"
[2021-11-13] MEDS ORDERED: cloNIDine HCL 0.1 MG TAB ONE ×2 (06:13→07:36)
[2021-11-13 06:21] LABS: Absolute Lymphocytes (CBC) 2.2 K/uL (0.7-4.9); Hematocrit 42.6 % (39.6-49.0); Lymphocytes % 22.4 % (15.3-44.8); MPV 8.7 fL (7.6-11.3); RBC Red Blood Cell Count 5.23 M/uL (4.33-5.43)
[2021-11-13 06:30] LABS: Potassium 3.6 mmol/L (3.5-5.1)
--- NOTE | 2021-11-13 07:38 | RAD REPORT ---
EXAM DESCRIPTION: RAD - Chest Single View - 11/13/2021 7:01 am CLINICAL HISTORY: rib pain COMPARISON: Chest Single View dated 02/23/2021; Chest Single View dated 12/14/2018 FINDINGS: Lines: None. Lungs: No evidence of edema or pneumonia. Pleural: No significant pleural effusions or pneumothorax. Cardiac: The heart size is within normal limits. Bones: No acute fractures. Other: IMPRESSION: No acute cardiopulmonary disease.
--- NOTE | 2021-11-13 07:38 | RAD REPORT ---
EXAM DESCRIPTION: RAD - Hand Left 2 View - 11/13/2021 7:01 am CLINICAL HISTORY: PAIN COMPARISON: No comparisons FINDINGS/IMPRESSION: Dislocation at the fourth MCP joint. The dislocation is in the volar and radial direction. No fractures seen. Mild to moderate degenerative changes at the first CMC.
[2021-11-13] MEDS ORDERED: LIDOCAINE 1% W/EPI 1:100,000 MDV 20 ML VIAL ONE (08:01)
--- NOTE | 2021-11-13 09:57 | RAD REPORT ---
EXAM DESCRIPTION: RAD - Hand Left 2 View - 11/13/2021 9:51 am CLINICAL HISTORY: PAIN COMPARISON: Hand Left 2 View dated 11/13/2021 FINDINGS/IMPRESSION: The fourth digit remains dislocated in the volar direction.
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
--- NOTE | 2021-11-13 14:58 | EKG ---
Test Date: 2021-11-13 Test Time: 06:11:56 Optomechanical Technician: SOY MEASUREMENT RESULTS: Intervals: Rate: 75 SC: 134 QRSD: 96 QT: 426 QTc: 475 [place]: P: 51 SC: 134 QRS: 51 T: 2 INTERPRETIVE STATEMENTS: Normal sinus rhythm Nonspecific T wave abnormality Prolonged QT Abnormal ECG Compared to ECG 02/23/2021 00:56:48 No significant changes Electronically Signed On 11-13-21 14:54:18 CDT by Obed Boyd
[2021-11-13 18:34] VITALS: TEMP 97.5
[2021-11-13 18:40] VITALS: O2SAT 99
[2021-11-13 18:42] VITALS: BP 154/90
== END 2021-11-13 10:47 | disposition home or self-care (01) ==
LOC: ER 05:53
PROC: 0RSVXZZ Reposition Left Metacarpophalangeal Joint, External Approach (ICD-10-PCS; principal; 2021-11-13)
DX: I10 Essential (primary) hypertension (principal); S63.265A Dislocation of metacarpophalangeal joint of left ring finger, initial encounter; R07.81 Pleurodynia; M79.642 Pain in left hand; F17.210 Nicotine dependence, cigarettes, uncomplicated
CPT/HCPCS: 36415; 71045; 80048; 84484; 85025; 93005; 99284